=== PATIENT | female | born 1965 | race Caucasian/White ===

== ENCOUNTER 2016-11-06 01:20 | Emergency (ER) | payer BC ==
[2016-11-06 01:37] VITALS: BP 120/72
--- NOTE | 2016-11-06 02:14 | EDM.PDOC ---
ED HPI EYE COMPLAINT - General Chief Complaint: Eye Problems Stated Complaint: EYES SWOLLEN Time Seen by Provider: 11/06/16 01:58 - History of Present Illness INITIAL COMMENTS - FREE TEXT/NARRATIVE: HISTORY AND PHYSICAL: History of present illness: The patient is a 51-year-old female who presents with bilateral eye drainage and eyelid swelling that started approximately 24-36 hours ago. Patient denies any fever chills runny nose cough shortness of breath vomiting or diarrhea and wears glasses for distance but does not wear contact lenses. Patient denies any foreign body exposure or any chemical exposure and he did not notice any itching or irritation her eyes but awoke with crusting and the drainage throughout the day. Patient is concerned about pinkeye and is here for evaluation. Patient denies any foreign body sensation he does not feel like her vision is change or blurred just that there is a lot of drainage. Review of systems: As per history of present illness and below otherwise all systems reviewed and negative. Past medical history: As per history of present illness and as reviewed below otherwise noncontributory. Surgical history: As per history of present illness and as reviewed below otherwise noncontributory. Social history: No reported history of drug or alcohol abuse. Family history: As per history of present illness and as reviewed below otherwise noncontributory. Physical exam: General: Well-developed well-nourished female is nontoxic and speaking clearly and easily in the ED. She has persistent drainage from her eyes on my evaluation. HEENT: Atraumatic, normocephalic, pupils reactive, EOM intact, there is bilateral eyelid swelling more on the lower lid margin than on the upper and there is bilateral injected sclera and conjunctival erythema with clearing cloudy drainage seen. There is no crepitus or periorbital tenderness or erythema , negative for conjunctival pallor or scleral icterus, mucous membranes moist, throat clear, neck supple, nontender, trachea midline. There is no facial swelling Lungs: Clear to auscultation, breath sounds equal bilaterally, chest nontender. Heart: S1S2, regular rate and rhythm no overt murmurs Abdomen: Soft, nondistended, nontender. NABS Genitourinary: Deferred. Rectal: Deferred. Extremities: Atraumatic, full range of motion without defects or deficits Neurovascular unremarkable. Neuro: Awake, alert, oriented. Cranial nerves II through XII unremarkable. Cerebellum unremarkable. Motor and sensory unremarkable throughout. Exam nonfocal. Diagnostics: Visual acuity= right eye 20/20 left eye 20/25 both eyes 20/20 with glasses on Therapeutics: [] Impression: Bilateral conjunctivitis Definitive disposition and diagnosis as appropriate pending reevaluation and review of above. - Related Data Allergies/ADRs: Allergies No Known Allergies Allergy (Verified 11/06/16 01:30) Home Meds: Ambulatory Orders Medication Instructions Recorded Confirmed Fluticasone Propionate [Flonase] 1 spray NASBOTH ASDIRECTED 08/30/14 11/06/16 Lisinopril [Lisinopril] 1 tab PO DAILY 11/06/16 11/06/16 atorvaSTATin Calcium [Atorvastatin 1 tab PO DAILY 11/06/16 11/06/16 Calcium] metFORMIN HCl [Metformin HCl] 1 tab PO BID 11/06/16 11/06/16 Past Medical History HEENT History: Reports: None Cardiovascular History: Reports: High cholesterol Respiratory History: Reports: None Gastrointestinal History: Reports: None Genitourinary History: Reports: None 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 Musculoskeletal History: Reports: None Neurological History: Reports: None Psychiatric History: Reports: Depression Endocrine/Metabolic History: Reports: Diabetes, type II Hematologic History: Reports: None Immunologic History: Reports: None Oncologic (Cancer) History: Reports: None Dermatologic History: Reports: None - Infectious Disease History Infectious Disease History: Reports: None - Past Surgical History HEENT Surgical History: Reports: Tonsillectomy, Other (see below) Other HEENT Surgeries/Procedures: wisdom tooth Female Surgical History: Reports: D&C Social & Family History - Family History Family Medical History: Noncontributory - Tobacco Use Smoking Status *Q: Never Smoker Second Hand Smoke Exposure: No - Caffeine Use Caffeine Use: Reports: Soda, Tea - Recreational Drug Use Recreational Drug Use: No ED ROS GENERAL - Review of Systems Review Of Systems: ROS reveals no pertinent complaints other than HPI. ED EXAM GENERAL W FULL EYE - Physical Exam Exam: See Below (See dictation) Course - Vital Signs Last Recorded V/S: Last Vital Signs Temp 36.7 C 11/06/16 01:33 Pulse 86 11/06/16 01:33 Resp 18 11/06/16 01:33 BP 120/72 11/06/16 01:33 Pulse Ox 96 11/06/16 01:33 - Orders/Labs/Meds Orders: Active Orders 24 hr Category Date Time Status Communication Order [RC] STAT Care 11/06/16 02:09 Ordered Departure - Departure Time of Disposition: 02:13 Disposition: Home, Self-Care 01 Condition: good Clinical Impression: Conjunctivitis Qualifiers: Conjunctivitis type: acute Acute conjunctivitis type: bacterial Laterality: bilateral Qualified Code(s): H10.33 - Unspecified acute conjunctivitis, bilateral Forms: ED Department Discharge Additional Instructions: The following information is given to patients seen in the emergency department who are being discharged to home. This information is to outline your options for follow-up care. We provide all patients seen in our emergency department with a follow-up referral. The need for follow-up, as well as the timing and circumstances, are variable depending upon the specifics of your emergency department visit. If you don't have a primary care physician on staff, we will provide you with a referral. We always advise you to contact your personal physician following an emergency department visit to inform them of the circumstance of the visit and for follow-up with them and/or the need for any referrals to a consulting specialist. The emergency department will also refer you to a specialist when appropriate. This referral assures that you have the opportunity for followup care with a specialist. All of these measure are taken in an effort to provide you with optimal care, which includes your followup. Under all circumstances we always encourage you to contact your private physician who remains a resource for coordinating your care. When calling for followup care, please make the office aware that this follow-up is from your recent emergency room visit. If for any reason you are refused follow-up, please contact the [facility] emergency department at and ask to speak to the emergency department charge nurse. [facility] [address] [place] [address] [facility] Primary care- Internal Medicine and Family [facility] [address] [place] [id number] When you have crusting or drainage to the eyes but these cleanse gently with cool water and he may apply ice or compresses to the eyelids for brief periods of time to help with swelling and pain. Please use the eyedrops as prescribed and please call and followup with your primary care physician as well as our b2b account executive for further care and evaluation this week. Return to the ER as needed and as discussed. These take care to not cross contaminate the eyes when you were wiping or washing. - My Orders Last 24 Hours: My Active Orders 11/06/16 02:09 Communication Order [RC] STAT - Assessment/Plan Last 24 Hours: My Active Orders 11/06/16 02:09 Communication Order [RC] STAT
== END 2016-11-06 02:25 | disposition home or self-care (01) ==
LOC: MW.ED 01:20
DX: H10.33 Unspecified acute conjunctivitis, bilateral (principal); E78.00 Pure hypercholesterolemia, unspecified; E11.9 Type 2 diabetes mellitus without complications; Z79.899 Other long term (current) drug therapy; Z98.890 Other specified postprocedural states
CPT/HCPCS: 99282; 99283

== ENCOUNTER → 2016-11-29 | Outpatient (CLI) | payer BC ==
[2016-11-29 17:40] LABS: CHLORIDE,CL 106 mmol/L (98-110); SODIUM,NA 142 mmol/L (136-146)
== END ==
LOC: MW.CHOBGYN 16:53
PROVIDERS: ATTEND Nurse Practitioner Women's Health
DX: N92.1 Excessive and frequent menstruation with irregular cycle (principal)
CPT/HCPCS: 36415; 80048; 83001; 83002; 84144; 84146; 84443; 84703; 85025

== ENCOUNTER → 2016-12-03 | Outpatient (CLI) | payer BC ==
--- NOTE | 2016-12-06 14:12 | US ---
EXAM DATE: 12/03/16 PATIENT'S AGE: 51 Patient: ZACARIAS CHUNG Facility: [place], [place] Site . Site : 1965 Study: US Pelvis [id number]/12/2017 3:58:03 PM Ordering Physician: Presley Mascorro Final Report: CLINICAL HISTORY: Excessive frequent menstruation TECHNIQUE: Real time, townsend scale images were acquired of the pelvis using a transabdominal and transvaginal approach. Color Doppler analysis was performed of the ovaries. FINDINGS: Uterus measures 8.7 x 4.8 x 4 cm. Suboptimal visualization of the uterus. Endometrial stripe measures 8 millimeters . The ovaries demonstrate normal follicular development. The left ovary measures 2.9 x 2 x 2.6 cm in size and the right ovary measures 2.9 x 2.4 x 2.8 cm. The ovaries demonstrate normal blood flow on color Doppler analysis. There are no suspicious fluid collections within the cul-de-sac. IMPRESSION: Unremarkable pelvic ultrasound. Dictated by Mounika Mckoy MD @ Dec 04 2016 3:31PM (Electronic Signature) Report Signed by Proxy. AMAURI
== END ==
LOC: MW.US 14:07
PROVIDERS: ATTEND Nurse Practitioner Women's Health
DX: N92.1 Excessive and frequent menstruation with irregular cycle (principal)
CPT/HCPCS: 36415; 76830; 76830-26; 83001; 83002; 84144; 84146

== ENCOUNTER 2018-01-12 02:26 | Emergency (ER) | payer BC ==
[2018-01-12] MEDS ORDERED: Lidocaine 1% 10 ML MDV INJECT ONE (02:41)
[2018-01-12] MEDS ORDERED: Diphtheria,Pertussis(Acell),Tetanus Vaccine 0.5 ML Syringe IM ONE (02:45)
[2018-01-12] MEDS ORDERED: Bacitracin Oint 1 GM U/D Packet TOP ONE (02:47)
--- NOTE | 2018-01-12 03:16 | EDM.PDOC ---
ED HPI GENERAL MEDICAL PROBLEM - General Chief Complaint: Laceration Stated Complaint: CUT ON LEFT THUMB Time Seen by Provider: 01/12/18 02:28 Source of Information: Reports: Patient History Limitations: Reports: No Limitations - History of Present Illness INITIAL COMMENTS - FREE TEXT/NARRATIVE: HISTORY AND PHYSICAL: History of present illness: 52-year-old female presenting to emergency department with chief complaint of laceration to the right thumb. 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 She was going to go order picker sister to bring her to the emergency department and was in a hurry when she tried to opening up a box from the mail using a knife when she inadvertently sliced the distal aspect of her right thumb. States there was some bleeding but not significant. She denies any foreign objects in the wound. Last tetanus greater than 5 years. No decrease in strength, sensation, range of motion. On exam there is a 1.5 cm laceration to the distal medial volar aspect just lateral to the nail of the right thumb not involving the nail. Review of systems: As per history of present illness and below otherwise all systems reviewed and negative. Past medical history: As per history of present illness and as reviewed below otherwise noncontributory. Surgical history: As per history of present illness and as reviewed below otherwise noncontributory. Social history: No reported history of drug or alcohol abuse. Family history: As per history of present illness and as reviewed below otherwise noncontributory. Physical exam: HEENT: Atraumatic, normocephalic, pupils reactive, negative for conjunctival pallor or scleral icterus, mucous membranes moist, throat clear, neck supple, nontender, trachea midline. Lungs: Clear to auscultation, breath sounds equal bilaterally, chest nontender. Heart: S1S2, regular, negative for clicks, rubs, or JVD. Abdomen: Soft, nondistended, nontender. Negative for masses or hepatosplenomegaly. Negative for costovertebral tenderness. Pelvis: Stable nontender. Genitourinary: Deferred. Rectal: Deferred. Extremities: See above, negative for cords or calf pain. Neurovascular unremarkable. Neuro: Awake, alert, oriented. Cranial nerves II through XII unremarkable. Cerebellum unremarkable. Motor and sensory unremarkable throughout. Exam nonfocal. Diagnostics: [] Therapeutics: 1% lidocaine 3.5 ml injected DTaP Right first digit block Bactrim 160 mg by mouth twice a day 7 days Impression: Laceration of right distal first digit Update tetanus Plan: Using 3 mL of 1% lidocaine right first digit was blocked with no complications. 3 interrupted sutures were placed with P3 5-0 Ethilon sutures. No complications. Patient tolerated procedure well. Instructed to keep area clean and dry and have sutures removed in 7 days. Patient was also given a DTaP and prescribed Bactrim on her 60 mg by mouth twice a day 7 days. She is instructed to return to emergency department if she had a new or worsening symptoms and will watch for signs of infection including but not limited to swelling, increased pain, purulent drainage, and increasing erythema. left thumb Pain Score (Numeric/FACES): 1 - Related Data Allergies Allergy/AdvReac Type Severity Reaction Status Date / Time No Known Allergies Allergy Verified 01/12/18 02:29 Home Meds: Home Meds Lisinopril 1 tab PO DAILY 11/06/16 [History] atorvaSTATin Calcium [Atorvastatin Calcium] 1 tab PO DAILY 11/06/16 [History] metFORMIN HCl [Metformin HCl] 1 tab PO BID 11/06/16 [History] Past Medical History HEENT History: Reports: Impaired Vision, Other (See Below) Other HEENT History: wears glasses Cardiovascular History: Reports: High Cholesterol Respiratory History: Reports: None Gastrointestinal History: Reports: None Genitourinary History: Reports: None 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 Musculoskeletal History: Reports: None Neurological History: Reports: None Psychiatric History: Reports: Depression Endocrine/Metabolic History: Reports: Diabetes, Type II Hematologic History: Reports: None Immunologic History: Reports: None Oncologic (Cancer) History: Reports: None Dermatologic History: Reports: None - Infectious Disease History Infectious Disease History: Reports: None - Past Surgical History HEENT Surgical History: Reports: Tonsillectomy Female Surgical History: Reports: D&C, Hysterectomy Social & Family History - Family History Family Medical History: Noncontributory - Tobacco Use Smoking Status *Q: Never Smoker - Caffeine Use Caffeine Use: Reports: Soda, Tea - Recreational Drug Use Recreational Drug Use: No ED ROS GENERAL - Review of Systems Review Of Systems: ROS reveals no pertinent complaints other than HPI. ED EXAM, SKIN/RASH Exam: See Below Course - Vital Signs Last Recorded V/S: Last Vital Signs Temp 97 F 01/12/18 02:26 Pulse 88 01/12/18 02:26 Resp 18 01/12/18 02:26 BP 128/87 01/12/18 02:26 Pulse Ox 97 01/12/18 02:26 - Orders/Labs/Meds Orders: Active Orders 24 hr Category Date Time Status Vaccines to be Administered [RC] PER UNIT ROUTINE Care 01/12/18 02:45 Active Meds: Medications Discontinued Medications Generic Name Dose Route Start Last Admin Trade Name Maninder PRN Reason Stop Dose Admin Bacitracin 1 dose 01/12/18 02:47 01/12/18 02:56 Bacitracin Oint 1 Gm TOP 01/12/18 02:48 1 dose ONETIME ONE Administration Diphtheria/Tetanus/Acell Pertussis 0.5 ml 01/12/18 02:45 01/12/18 02:57 Adacel IM 01/12/18 02:46 0.5 ml .ONCE ONE Administration Lidocaine HCl Confirm 01/12/18 02:48 01/12/18 02:54 Xylocaine-Mpf 1% Administered 01/12/18 02:49 Not Given Dose 5 mls @ as directed .ROUTE .STK-MED ONE Lidocaine HCl 10 ml 01/12/18 02:41 01/12/18 02:55 Xylocaine 1% INJECT 01/12/18 02:42 Not Given ONETIME ONE Lidocaine HCl 5 ml 01/12/18 02:55 01/12/18 02:56 Xylocaine-Mpf 1% INJECT 01/12/18 02:56 5 ml ONETIME ONE Administration Lidocaine HCl 5 ml 01/12/18 02:55 01/12/18 02:56 Xylocaine-Mpf 1% INJECT 01/12/18 02:56 Not Given ONETIME ONE Departure - Departure Time of Disposition: 03:43 Disposition: Home, Self-Care 01 Condition: Good Clinical Impression: Laceration of right thumb without complication Qualifiers: Encounter type: initial encounter Qualified Code(s): S61.011A - Laceration without foreign body of right thumb without damage to nail, initial encounter - Discharge Information Referrals: Jarocho Rossi MD [Primary Care Provider] - Additional Instructions: My general discharge The following information is given to patients seen in the emergency department who are being discharged to home. This information is to outline your options for follow-up care. We provide all patients seen in our emergency department with a follow-up referral. The need for follow-up, as well as the timing and circumstances, are variable depending upon the specifics of your emergency department visit. If you don't have a primary care physician on staff, we will provide you with a referral. We always advise you to contact your personal physician following an emergency department visit to inform them of the circumstance of the visit and for follow-up with them and/or the need for any referrals to a consulting specialist. The emergency department will also refer you to a specialist when appropriate. This referral assures that you have the opportunity for follow-up care with a specialist. All of these measure are taken in an effort to provide you with optimal care, which includes your follow-up. Under all circumstances we always encourage you to contact your private physician who remains a resource for coordinating your care. When calling for follow-up care, please make the office aware that this follow-up is from your recent emergency room visit. If for any reason you are refused follow-up, please contact the [facility] Emergency Department at and asked to speak to the emergency department charge nurse. [facility] [address] [place] [address] 1. Keep area clean and dry. 2. Use ibuprofen and ice for pain and inflammation. 3. Sutures will need to be removed in 7 days. He may have them removed. The emergency department. However you can have your primary care provider removed as well. 4. Watch for signs of inflammation including but not limited to increasing pain , redness, swelling, or purulent drainage. 5. Return to emergency department if any new or worsening symptoms. - My Orders Last 24 Hours: My Active Orders 01/12/18 02:45 Vaccines to be Administered [RC] PER UNIT ROUTINE - Assessment/Plan Last 24 Hours: My Active Orders 01/12/18 02:45 Vaccines to be Administered [RC] PER UNIT ROUTINE
[2018-01-12 04:07] VITALS: BP 100/64
== END 2018-01-12 04:05 | disposition home or self-care (01) ==
LOC: MW.ED 02:26
DX: S61.011A Laceration without foreign body of right thumb without damage to nail, initial encounter (principal); E78.00 Pure hypercholesterolemia, unspecified; E11.9 Type 2 diabetes mellitus without complications; Z23 Encounter for immunization; Z79.899 Other long term (current) drug therapy; W26.0XXA Contact with knife, initial encounter
CPT/HCPCS: 90471; 90715; 99282-25

== ENCOUNTER 2019-11-24 07:50 | Emergency (ER) | payer BC ==
[2019-11-24 08:12] VITALS: BP 132/90; PULSE 89
--- NOTE | 2019-11-24 08:33 | EDM.PDOC ---
ED HPI GENERAL MEDICAL PROBLEM - General Chief Complaint: Gastrointestinal Problem Stated Complaint: HEMERRHOIDS Time Seen by Provider: 11/24/19 07:54 - History of Present Illness INITIAL COMMENTS - FREE TEXT/NARRATIVE: 54-year-old female with a history of hypertension, hyperlipidemia, diabetes, morbid obesity who is presenting with 2 to 3 weeks of rectal discomfort. Patient reports she has had trouble with hemorrhoids off and on since she was a child. She reports she has had more trouble with them over the last 2 to 3 weeks. She notes occasional bright red blood on the toilet paper and in the toilet bowl and significant discomfort surrounding the hemorrhoids. She has been using a [id number] suppository with minimal relief. She was unable to sleep last night because of the pain and so presents this morning. There is no nausea or vomiting she denies a history of significant constipation. There is no other abdominal pain no other symptoms. The symptoms worsen when sitting on the toilet and during bowel movements they are without radiation or other associated symptoms. rectal pain Pain Score (Numeric/FACES): 8 - Related Data Allergies Allergy/AdvReac Type Severity Reaction Status Date / Time No Known Allergies Allergy Verified 11/24/19 08:04 Home Meds: Home Meds Lisinopril 1 tab PO DAILY 11/06/16 [History] atorvaSTATin Calcium [Atorvastatin Calcium] 1 tab PO DAILY 11/06/16 [History] metFORMIN HCl [Metformin HCl] 1 tab PO BID 11/06/16 [History] Past Medical History HEENT History: Reports: Impaired Vision, Other (See Below) Other HEENT History: wears glasses Cardiovascular History: Reports: High Cholesterol Respiratory History: Reports: None Gastrointestinal History: Reports: Hemorrhoids Genitourinary History: Reports: None [employer]OR [employer] MACHINE History: Reports: None Musculoskeletal History: Reports: None Neurological History: Reports: None Psychiatric History: Reports: Depression Endocrine/Metabolic History: Reports: Diabetes, Type II Hematologic History: Reports: None Immunologic History: Reports: None Oncologic (Cancer) History: Reports: None Dermatologic History: Reports: None - Infectious Disease History Infectious Disease History: Reports: None - Past Surgical History HEENT Surgical History: Reports: Tonsillectomy Female Surgical History: Reports: D&C, Hysterectomy Social & Family History - Family History Family Medical History: Noncontributory - Tobacco Use Smoking Status *Q: Never Smoker - Caffeine Use Caffeine Use: Reports: Soda, Tea - Recreational Drug Use Recreational Drug Use: No ED ROS GENERAL - Review of Systems Review Of Systems: See Below Free Text/Narrative/Comment: General: No fever. Skin: No rash. Eyes: No vision problems. ENT: No sore throat. Neck: No neck stiffness. Respiratory: No shortness of breath. Cardiac: No chest pain. Gastrointestinal: Per HPI Urinary: No dysuria. Musculoskeletal: No myalgias/arthralgias. Neurologic: No headache. ED EXAM, GI/ABD - Physical Exam Exam: See Below Text/Narrative:: General Appearance: No acute distress, appears comfortable Skin: No rash HEENT: Normocephalic/atraumatic, sclera anicteric, mucous membranes moist Neck: Normal range of motion Abdomen: Soft, non-tender Rectal exam: Multiple soft nonthrombosed primarily internal hemorrhoids 1 nonthrombosed external hemorrhoid is noted at the 3 o'clock position hemorrhoids easily reduced during exam which led to improvement in pain no gross blood on digital rectal exam Back: Normal Musculoskeletal: No edema or tenderness Neurologic: Awake, alert, no obvious deficits, moving all extremities Psychiatric: Appropriate, cooperative Course - Vital Signs Last Recorded V/S: Last Vital Signs Temp 97.3 F 11/24/19 08:04 Pulse 89 11/24/19 08:04 Resp 18 11/24/19 08:04 BP 132/90 11/24/19 08:04 Pulse Ox 98 11/24/19 08:04 Departure - Departure Time of Disposition: 08:30 Disposition: Home, Self-Care 01 Condition: Good Clinical Impression: Internal hemorrhoids without complication - Discharge Information *PRESCRIPTION DRUG MONITORING PROGRAM REVIEWED*: Not Applicable *COPY OF PRESCRIPTION DRUG MONITORING REPORT IN PATIENT JOSE: Not Applicable Instructions: High-Fiber Diet, Hemorrhoids, [id number] Referrals: Alessia Souza DO [Primary Care Provider] - Forms: ED Department Discharge Additional Instructions: It is important that you do not spend more time on the toilet than you need to. I recommend not doing any other activity while you are sitting on the toilet. You can use either the lkgx-vsg-zvezmhg suppositories or the cream to treat your hemorrhoids. However, if your hemorrhoids are outside of your anus as they were this morning the creams will likely provide you more benefit. You may also feel better if you are able to push the hemorrhoids back inside of your rectum. As we discussed today you can do this with slow gentle pressure. I encourage you to follow-up with your primary care doctor. Eat a high-fiber diet. If you start to develop trouble with constipation or having to force your stool out but I recommend starting opoo-tcm-oozahxn MiraLAX and following the directions on the bottle. If your bleeding worsens you develop any other abdominal pain lightheadedness dizziness or any other new symptoms that concern you you are always welcome to return to the emergency department. Regardless please follow-up with your primary care provider so he can guide you through additional treatments if conservative management does not treat your hemorrhoids. The following information is given to patients seen in the emergency department who are being discharged to home. This information is to outline your options for follow-up care. We provide all patients seen in our emergency department with a follow-up referral. The need for follow-up, as well as the timing and circumstances, are variable depending upon the specifics of your emergency department visit. If you don't have a primary care physician on staff, we will provide you with a referral. We always advise you to contact your personal physician following an emergency department visit to inform them of the circumstance of the visit and for follow-up with them and/or the need for any referrals to a consulting specialist. The emergency department will also refer you to a specialist when appropriate. This referral assures that you have the opportunity for follow-up care with a specialist. All of these measure are taken in an effort to provide you with optimal care, which includes your follow-up. Under all circumstances we always encourage you to contact your private physician who remains a resource for coordinating your care. When calling for follow-up care, please make the office aware that this follow-up is from your recent emergency room visit. If for any reason you are refused follow-up, please contact the [facility] Emergency Department at and asked to speak to the emergency department charge nurse. Sepsis Event Note - Evaluation Sepsis Screening Result: No Definite Risk - Focused Exam Vital Signs: Vital Signs Temp Pulse Resp BP Pulse Ox 11/24/19 08:04 97.3 F 89 18 132/90 98 Date Exam was Performed: 11/24/19 Time Exam was Performed: 08:33 - Assessment/Plan Assessment:: 54-year-old female presenting with symptoms consistent with the hemorrhoids that are present on exam. None of them are thrombosed or amenable to incision. There is no abdominal findings on exam or other abdominal symptoms that would indicate intra-abdominal process. She is clinically well-appearing symptoms have been on and off for the last few weeks. I recommended continued over-the- counter medications we discussed stool softeners but patient reported that her stool is soft. We also discussed that she needs to limit her time on the toilet and it does sound like she often spends a great deal of time on the toilet looking for phone or doing other things and we discussed that this worsens hemorrhoids. Patient will continue care with bcmn-jex-xyryxky medications she will follow-up with her primary care doctor the importance of follow-up to ensure resolution of her symptoms was discussed and understood return precautions were discussed and understood multiple other etiologies were considered but given her history and exam I think symptomatic hemorrhoids are the most likely cause of her presentation.
== END 2019-11-24 08:40 | disposition home or self-care (01) ==
LOC: MW.ED 07:50
DX: K64.8 Other hemorrhoids (principal); K64.4 Residual hemorrhoidal skin tags; I10 Essential (primary) hypertension; E78.5 Hyperlipidemia, unspecified; E11.9 Type 2 diabetes mellitus without complications; E66.01 Morbid (severe) obesity due to excess calories; Z79.84 Long term (current) use of oral hypoglycemic drugs; Z79.899 Other long term (current) drug therapy
CPT/HCPCS: 99283

== ENCOUNTER 2020-02-02 15:38 | Emergency (ER) | payer BC ==
[2020-02-02] MEDS ORDERED: Ibuprofen 800 MG Tab PO ONE (16:00)
--- NOTE | 2020-02-02 16:02 | EDM.PDOC ---
ED HPI GENERAL MEDICAL PROBLEM - General Chief Complaint: Upper Extremity Injury/Pain Stated Complaint: RIGHT WRIST INJURY Time Seen by Provider: 02/02/20 15:58 - History of Present Illness INITIAL COMMENTS - FREE TEXT/NARRATIVE: History of present illness: Patient fell onto her right wrist while gardening outside she felt immediate pain in the right wrist no other injuries the wrist is become swollen and painful to move this happened just prior to arrival no other concerns no other complaints patient has diabetes no allergies [] Review of systems: As per history of present illness and below otherwise all systems reviewed and negative. Past medical history: As per history of present illness and as reviewed below otherwise noncontributory. Surgical history: As per history of present illness and as reviewed below otherwise noncontributory. Social history: No reported history of drug or alcohol abuse. Family history: As per history of present illness and as reviewed below otherwise noncontributory. Physical exam: HEENT: Atraumatic, normocephalic, pupils reactive, negative for conjunctival pallor or scleral icterus, mucous membranes moist, throat clear, neck supple, nontender, trachea midline. Lungs: Clear to auscultation, breath sounds equal bilaterally, chest nontender. Heart: S1S2, regular, negative for clicks, rubs, or JVD. Abdomen: Soft, nondistended, nontender. Negative for masses or hepatosple nomegaly. Negative for costovertebral tenderness. Pelvis: Stable nontender. Genitourinary: Deferred. Rectal: Deferred. Extremities: Atraumatic, negative for cords or calf pain. Neurovascular unremarkable. The right wrist is swollen and tender on the radial aspect there is good distal pulse motor and capillary refill. Sensation is intact Neuro: Awake, alert, oriented. Cranial nerves II through XII unremarkable. Cerebellum unremarkable. Motor and sensory unremarkable throughout. Exam nonfocal. Diagnostics: [] Therapeutics: [] Impression: Wrist fracture versus sprain [] Plan: X-ray medicine splint referred to Ortho [] Definitive disposition and diagnosis as appropriate pending reevaluation and review of above. R wrist Pain Score (Numeric/FACES): 7 - Related Data Allergies Allergy/AdvReac Type Severity Reaction Status Date / Time No Known Allergies Allergy Verified 02/02/20 16:10 Home Meds: Home Meds Lisinopril 5 tab PO DAILY 04/15/17 [History] atorvaSTATin Calcium [Atorvastatin Calcium] 20 tab PO DAILY 11/06/16 [History] metFORMIN HCl [Metformin HCl] 500 mg PO BID 11/06/16 [History] Acetaminophen/HYDROcodone [[place] 325-5 MG] 1 tab PO Q6H #15 tablet 02/02/20 [Rx] Naproxen [Naprosyn] 500 mg PO Q12HR #20 tab 02/02/20 [Rx] Past Medical History HEENT History: Reports: Impaired Vision, Other (See Below) Other HEENT History: wears glasses Cardiovascular History: Reports: High Cholesterol Respiratory History: Reports: None Gastrointestinal History: Reports: Hemorrhoids Genitourinary History: Reports: None LAST CLEANER History: Reports: None Musculoskeletal History: Reports: None Neurological History: Reports: None Psychiatric History: Reports: Depression Endocrine/Metabolic History: Reports: Diabetes, Type II Hematologic History: Reports: None Immunologic History: Reports: None Oncologic (Cancer) History: Reports: None Dermatologic History: Reports: None - Infectious Disease History Infectious Disease History: Reports: None - Past Surgical History HEENT Surgical History: Reports: Tonsillectomy Female Surgical History: Reports: D&C, Hysterectomy Social & Family History - Family History Family Medical History: Noncontributory - Caffeine Use Caffeine Use: Reports: Soda, Tea Review of Systems - Review of Systems Review Of Systems: See Below ED EXAM, GENERAL - Physical Exam Exam: See Below Course - Vital Signs Text/Narrative:: A 3 view right wrist read interpreted by me shows a distal radius fracture with minimal displacement read and interpreted by me Patient will be splinted and then referred to orthopedics home with [place] and naproxen. Last Recorded V/S: Last Vital Signs Temp 35.9 C L 02/02/20 16:00 Pulse 95 02/02/20 16:00 Resp 18 02/02/20 16:00 BP 135/72 02/02/20 16:00 Pulse Ox 99 02/02/20 16:00 - Orders/Labs/Meds Orders: Active Orders 24 hr Category Date Time Status Wrist Comp Min 3V Rt [CR] Stat Exams 02/02/20 16:00 Ordered Meds: Medications Discontinued Medications Generic Name Dose Route Start Last Admin Trade Name Freq PRN Reason Stop Dose Admin Ibuprofen 800 mg 02/02/20 16:00 02/02/20 16:16 Motrin PO 02/02/20 16:01 800 mg ONETIME ONE Administration Departure - Departure Time of Disposition: 16:18 Disposition: Home, Self-Care 01 Condition: Good Clinical Impression: Wrist fracture, closed - Discharge Information *PRESCRIPTION DRUG MONITORING PROGRAM REVIEWED*: Not Applicable *COPY OF PRESCRIPTION DRUG MONITORING REPORT IN PATIENT JOSE: Not Applicable Prescriptions: Naproxen [Naprosyn] 500 mg PO Q12HR #20 tab Acetaminophen/HYDROcodone [[place] 325-5 MG] 1 tab PO Q6H #15 tablet Instructions: Wrist Fracture Treated With Immobilization, [id number] Referrals: Alessia Souza DO [Primary Care Provider] - Forms: ED Department Discharge Additional Instructions: The following information is given to patients seen in the emergency department who are being discharged to home. This information is to outline your options for follow-up care. We provide all patients seen in our emergency department with a follow-up referral. The need for follow-up, as well as the timing and circumstances, are variable depending upon the specifics of your emergency department visit. If you don't have a primary care physician on staff, we will provide you with a referral. We always advise you to contact your personal physician following an emergency department visit to inform them of the circumstance of the visit and for follow-up with them and/or the need for any referrals to a consulting specialist. The emergency department will also refer you to a specialist when appropriate. This referral assures that you have the opportunity for follow-up care with a specialist. All of these measure are taken in an effort to provide you with optimal care, which includes your follow-up. Under all circumstances we always encourage you to contact your private physician who remains a resource for coordinating your care. When calling for follow-up care, please make the office aware that this follow-up is from your recent emergency room visit. If for any reason you are refused follow-up, please contact the [facility] Emergency Department at and asked to speak to the emergency department charge nurse. [facility] Professional Building [address] [place] [address], [address] [place] [address] Sepsis Event Note (ED) - Focused Exam Vital Signs: Vital Signs Temp Pulse Resp BP Pulse Ox 02/02/20 16:00 35.9 C L 95 18 135/72 99 - My Orders Last 24 Hours: My Active Orders 02/02/20 16:00 Wrist Comp Min 3V Rt [CR] Stat - Assessment/Plan Last 24 Hours: My Active Orders 02/02/20 16:00 Wrist Comp Min 3V Rt [CR] Stat
--- NOTE | 2020-02-02 16:27 | CR ---
Indication: Pain Technique: A total of three views of the right wrist were acquired. Comparison: None Findings: Bones: There is an impacted comminuted fracture of the distal right radius. This is associated with dorsal angulation deformity. Radiocarpal joint is intact. The distal ulna is intact. There is posttraumatic positive ulnar variance. Joint spaces: Unremarkable. Soft tissues: Regional soft tissue swelling Impression: Impacted comminuted fracture of the distal right radius. Dorsal angulation deformity. Posttraumatic positive ulnar variance. Dictated by Alex Holder MD @ Feb 02 2020 4:24PM Signed by Dr. Alex Holder @ Feb 02 2020 4:25PM
[2020-02-02 16:51] VITALS: BP 126/76; PULSE 76
== END 2020-02-02 16:51 | disposition home or self-care (01) ==
LOC: MW.ED 15:38
DX: S52.501A Unspecified fracture of the lower end of right radius, initial encounter for closed fracture (principal); E11.9 Type 2 diabetes mellitus without complications; F32.9 Major depressive disorder, single episode, unspecified; E78.00 Pure hypercholesterolemia, unspecified; Z79.84 Long term (current) use of oral hypoglycemic drugs; Z79.899 Other long term (current) drug therapy; X58.XXXA Exposure to other specified factors, initial encounter; Y93.H2 Activity, gardening and landscaping
CPT/HCPCS: 73110; 99283; A9270

== ENCOUNTER 2021-08-12 16:23 | Emergency (ER) | payer BC ==
[2021-08-12 18:58] VITALS: BP 115/82; PULSE 88
== END 2021-08-12 19:30 | disposition home or self-care (01) ==
LOC: MW.ED 16:23
DX: U07.1 COVID-19 (principal); E11.9 Type 2 diabetes mellitus without complications; E78.00 Pure hypercholesterolemia, unspecified; Z79.899 Other long term (current) drug therapy; Z79.84 Long term (current) use of oral hypoglycemic drugs
CPT/HCPCS: 87804; 99283; U0002

== ENCOUNTER 2021-12-31 09:45 | Day surgery (SDC) | payer BC ==
[~2021-12-31 09:45] MED LIST: Lactated Ringers 1,000 ML IV SCH; Lidocaine 2% 5 ML SDV ONE; Propofol 200 MG/20 ML SDV ONE; Sodium Chloride 0.9% 10 ML Syringe FLUSH PRN; Sodium Chloride 0.9% 2.5 ML Syringe FLUSH PRN; Sodium Chloride 0.9% 20 ML SDV IV PRN; fentaNYL 100 MCG/2 ML SDV ONE
[2021-12-31 13:10] VITALS: BP 108/63; PULSE 68
== END 2021-12-31 12:10 | disposition home or self-care (01) ==
LOC: MW.SDS 09:45
PROVIDERS: ATTEND Surgery
DX: Z12.11 Encounter for screening for malignant neoplasm of colon (principal); E11.9 Type 2 diabetes mellitus without complications; E66.01 Morbid (severe) obesity due to excess calories; E78.00 Pure hypercholesterolemia, unspecified; Z79.899 Other long term (current) drug therapy; Z79.84 Long term (current) use of oral hypoglycemic drugs; Z80.0 Family history of malignant neoplasm of digestive organs; Z68.42 Body mass index [BMI] 45.0-49.9, adult
CPT/HCPCS: 45380; J2704; J3010; 00812